=== PATIENT | female | born 1975 | race Caucasian/White ===

== ENCOUNTER → 2017-11-20 | Outpatient (CLI) | payer BC | LOC: OD 09:46 | PROVIDERS: ATTEND Obstetrics & Gynecology Reproductive Endocrinology | DX: Z31.9 Encounter for procreative management, unspecified (principal) | CPT/HCPCS: 36415; 84144; 84702 ==

== ENCOUNTER → 2019-01-11 | Outpatient (CLI) | payer BC | LOC: LAB 09:24 | PROVIDERS: ATTEND Obstetrics & Gynecology Reproductive Endocrinology | DX: Z31.9 Encounter for procreative management, unspecified (principal) | CPT/HCPCS: 36415; 82670; 84144 ==

== ENCOUNTER → 2019-02-04 | Outpatient (CLI) | payer BC | LOC: LAB 14:13 | PROVIDERS: ATTEND Obstetrics & Gynecology Reproductive Endocrinology | DX: N97.9 Female infertility, unspecified (principal) | CPT/HCPCS: 36415; 82670; 84144; 84702 ==

== ENCOUNTER → 2019-02-06 | Outpatient (CLI) | payer BC | LOC: OD 09:10 | PROVIDERS: ATTEND Obstetrics & Gynecology Reproductive Endocrinology | DX: N97.9 Female infertility, unspecified (principal) | CPT/HCPCS: 36415; 84702 ==

== ENCOUNTER → 2019-02-11 | Outpatient (CLI) | payer BC | LOC: OD 11:10 | PROVIDERS: ATTEND Obstetrics & Gynecology Reproductive Endocrinology | DX: N97.9 Female infertility, unspecified (principal) | CPT/HCPCS: 36415; 84702 ==

== ENCOUNTER → 2019-03-29 | Outpatient (CLI) | payer BC ==
[2019-03-30 16:36] LABS: DILUTE RUSSELL VIPOR VENOM 39.4 sec (0.0-47.0); PTT-LA 42.2 sec (0.0-51.9); THROMBIN TIME 16.7 sec (0.0-23.0)
[2019-03-31 11:49] LABS: ANTICARDIOLIPIN IGA AB <9 APL U/mL (0-11); ANTICARDIOLIPIN IGG AB <9 GPL U/mL (0-14); ANTICARDIOLIPIN IGM AB 10 MPL U/mL (0-12)
[2019-03-31 11:50] LABS: LUPUS PANEL INTERPRETATION Comment: (.)
== END ==
LOC: LAB 11:16
PROVIDERS: ATTEND Obstetrics & Gynecology Reproductive Endocrinology
DX: N96 Recurrent pregnancy loss (principal)
CPT/HCPCS: 36415; 81241; 83520; 85210; 86147; 86225; 86235